=== PATIENT | male | born 2000 | race Caucasian/White ===

== ENCOUNTER 2023-05-23 20:30 | Emergency (ER) | payer OTHER ==
[~2023-05-23] VITALS: Ht 167.6 cm; Wt 65.3 kg
[2023-05-23 20:36] VITALS: BP 120/71; PULSE 60; RESP 17; TEMP 99.2; O2SAT 97
== END 2023-05-23 20:59 | disposition home or self-care (01) ==
LOC: MED 20:30
DX: L02.413 Cutaneous abscess of right upper limb (principal); Z79.899 Other long term (current) drug therapy
CPT/HCPCS: 99282